=== PATIENT | female | born 1985 ===

== ENCOUNTER → 2021-06-18 | Outpatient (CLI) | payer BC ==
--- NOTE | 2021-06-19 11:04 | MM ---
Reason for exam: clinical finding. Baseline mammogram. History: Benign ultrasound-guided core biopsy of the left breast. Took hormonal contraceptives for 5 years beginning at age 17. Indicated problem(s): lump or thickening and pain in the left breast. Physical Findings: Nurse did not find any significant physical abnormalities on exam. [facility] Diagnostic Mammo w CAD MOIRA Bilateral CC and MLO view(s) were taken. The breast tissue is heterogeneously dense. This may lower the sensitivity of mammography. Previous biopsied mass inner central left breast 10cm from nipple measures 2.5cm. These results were verbally communicated with the patient and result sheet given to the patient on 06/18/21. ASSESSMENT: Incomplete: need additional imaging evaluation, BI-RAD 0 RECOMMENDATION: Ultrasound of the left breast.
--- NOTE | 2021-07-01 14:35 | USB ---
Reason for exam: additional evaluation requested from abnormal screening. History: Benign ultrasound-guided core biopsy of the left breast, November 20, 2014. Took hormonal contraceptives for 5 years beginning at age 17. US Breast Limited LT Left limited breast ultrasound including focal area of concern, retroareolar and axilla demonstrates a 2.1 x 2.0 x 1.2cm solid, hypoechoic lesion at 9 o'clock, clip seen. These results were verbally communicated with the patient and result sheet given to the patient on 06/18/21. ASSESSMENT: Probably benign, BI-RAD 3 RECOMMENDATION: Follow-up diagnostic mammogram and ultrasound of the left breast in 6 months.
== END | disposition home or self-care (01) ==
LOC: RADMAMWWP 14:38
PROVIDERS: ATTEND Family Medicine
DX: N63.25 Unspecified lump in the left breast, overlapping quadrants (principal)
CPT/HCPCS: 77066

== ENCOUNTER → 2022-12-06 | Outpatient (CLI) | payer BC ==
--- NOTE | 2022-12-06 13:39 | MM ---
Reason for Exam: Clinical finding. Last mammogram was performed 1 year(s) and 5 month(s) ago. Patient History: Menarche at age 14. First Full-Term at age 16. Premenopausal. Hormonal Contraceptives for 5 years from age 17 until age 22. 11/20/2014, Benign Ultrasound-Guided Core Biopsy on the left side. Maternal aunt had breast cancer. Last menstrual period: 11/21/2022 Risk Values: Yoanna 5 year model risk: 0.3%. NCI Lifetime model risk: 9.2%. Prior Study Comparison: 09/24/2014 Bilateral Diagnostic Ultrasound, [place]. 06/18/2021 Bilateral Diagnostic Mammogram, [facility]. 06/18/2021 Left Diagnostic Ultrasound, [facility]. Tissue Density: The breast tissue is heterogeneously dense. This may lower the sensitivity of mammography. Findings: Analyzed By CAD. 2.6 cm lobulated mass approximately 9-10 o'clock posterior left breast remains unchanged from 2020. Microclip from prior biopsy. No significant change from prior exams. Overall Assessment: Incomplete: need additional imaging evaluation, BI-RAD 0 Management: Diagnostic Breast Ultrasound of the left breast. Electronically signed and approved by: Lionel Hernandez M.D. Radiologist
--- NOTE | 2022-12-06 14:08 | USB ---
Patient History: Menarche at age 14. First Full-Term at age 16. Premenopausal. Hormonal Contraceptives for 5 years from age 17 until age 22. 11/20/2014, Benign Ultrasound-Guided Core Biopsy on the left side. Maternal aunt had breast cancer. Risk Values: Yoanna 5 year model risk: 0.3%. NCI Lifetime model risk: 9.2%. Prior Study Comparison: 06/18/2021 Bilateral Diagnostic Mammogram, [facility]. 06/18/2021 Left Diagnostic Ultrasound, [facility]. Findings: The whole breast of the left breast, the axilla of the left breast and the retroareolar of the left breast were scanned. A complete US of all four quadrants of the breast , axilla, and retro-areolar region were reviewed. Redemonstrated at the 9:00 position, 10 cm from the nipple, there is the previously biopsied, mildly lobulated but circumscribed solid mass. This measures 2.2 x 2.1 x 1.0 cm (versus 2.1 x 2.0 x 1.2 cm, previously). Not significantly changed. No other solid or cystic masses are identified. No axillary lymphadenopathy. Overall Assessment: Benign, BI-RAD 2 Management: Screening Mammogram of both breasts at age 42. Unless there is a clinical indication to start sooner. If the patient's biopsy-proven fibroadenoma becomes symptomatic, surgical consultation for excision can be considered. Patient should continue monthly self breast exams. Results were given to the patient verbally at the time of exam. Electronically signed and approved by: Lionel Hernandez M.D. Radiologist
== END | disposition home or self-care (01) ==
LOC: RADMAMWWP 13:05
PROVIDERS: ATTEND Family Medicine
DX: N63.25 Unspecified lump in the left breast, overlapping quadrants (principal); Z80.3 Family history of malignant neoplasm of breast
CPT/HCPCS: 77062; 77066

== ENCOUNTER → 2022-12-06 | Outpatient (CLI) | payer BC ==
--- NOTE | 2022-12-06 14:51 | XR ---
EXAMINATION TYPE: XR tibia fibula RT DATE OF EXAM: 12/06/2022 COMPARISON: NONE HISTORY: 37-year-old female R10.31 RLQ Pain I73.9 PVD TECHNIQUE: 2 views FINDINGS: Antegrade intraventricular nail with 2 proximal interlocking screws and 3 distal interlocking screws. There is also AP directed cortical screw at the distal tibial epiphysis. No periostitis or osteolysi s. No periprosthetic lucency seen. IMPRESSION: Previous nailing of the right tibia. No evident hardware complication or acute osseous abnormality se en.
== END | disposition home or self-care (01) ==
LOC: RADXRMAIN 14:12
PROVIDERS: ATTEND Family Medicine
DX: I73.9 Peripheral vascular disease, unspecified (principal); M79.604 Pain in right leg